=== PATIENT | female | born 1970 | race African-American/Black ===

== ENCOUNTER 2023-01-02 12:03 | Outpatient (CLI) | payer OTHER | END 2023-01-02 12:04 | disposition home or self-care (01) | LOC: CSHMAMMO 12:03 | PROVIDERS: ATTEND Nurse Practitioner Family | DX: Z12.31 Encounter for screening mammogram for malignant neoplasm of breast (principal); N64.89 Other specified disorders of breast | CPT/HCPCS: 77063; 77067 ==